=== PATIENT | male | born 1975 | race Caucasian/White ===

== ENCOUNTER → 2018-03-19 | Outpatient (CLI) | payer OTHER ==
--- NOTE | 2018-03-20 07:44 | Diagnostic Imaging Report ---
TECHNIQUE: Magnetic resonance imaging of the LEFT SHOULDER was performed WITHOUT injected contrast. COMPARISON: None available. HISTORY: Left shoulder pain FINDINGS: MUSCLES AND TENDONS: Rotator Cuff: Tendons: Interstitial tear of the conjoined tendon of the supraspinatus and infraspinatus coronal image 16 sagittal image 6. Muscles: No focal muscle atrophy. Biceps Tendon: The long head of the biceps tendon is intact and within the intertubercular groove. GLENOHUMERAL JOINT: Glenoid Labrum: No displaced tear. Articular Cartilage: No focal defect. AC JOINT AND ACROMION: Remote acromioclavicular separation. BONE: No acute fracture. SOFT TISSUES: Otherwise, the soft tissues appear unremarkable. IMPRESSION: Small interstitial tear of the conjoined supraspinatus and infraspinatus tendon adjacent to the humeral insertion. No full-thickness tear, retraction, or atrophy. Signed by: Dr. Kofi Lakhani M.D. on 03/20/2018 7:41 AM
== END ==
LOC: MRI 14:57
PROVIDERS: ATTEND Orthopaedic Surgery Orthopaedic Trauma
DX: M25.512 Pain in left shoulder (principal); M75.102 Unspecified rotator cuff tear or rupture of left shoulder, not specified as traumatic